=== PATIENT | female | born 1940 | race Caucasian/White ===

== ENCOUNTER → 2016-09-14 | Outpatient (CLI) | payer BC ==
--- NOTE | 2016-09-14 15:42 | MAMMOGRAPHY REPORT ---
BILATERAL DIGITAL SCREENING MAMMOGRAM WITH CAD: 09/14/2016 CLINICAL HISTORY: Routine screening. Patient has no complaints. TECHNIQUE: Current study was also evaluated with a Computer Aided Detection (CAD) system. Bilateral CC and MLO views were obtained. COMPARISON: Comparison is made to exams dated: 09/12/2015 mammogram, 09/10/2014 mammogram, 09/07/2013 ma mmogram, 09/05/2012 mammogram, 08/22/2011 mammogram, and 08/21/2010 mammogram - [facility]. BREAST COMPOSITION: There are scattered areas of fibroglandular density in both breasts. FINDINGS: No suspicious masses, calcifications, or areas of architectural distortion are noted in ei ther breast. There has been no significant interval change compared to prior exams. Scattered bilater al benign-appearing calcifications are not significantly changed. IMPRESSION: ACR BI-RADS CATEGORY 2: BENIGN There is no mammographic evidence of malignancy. A 1 year screening mammogram is recommended. The pa tient will receive written notification of the results. Approximately 10% of breast cancers are not detected with mammography. A negative mammographic report should not delay biopsy if a clinically suggestive mass is present. Simran Centeno M.D. /:09/14/2016 14:43:37 Zipper Trimmer Hand: Mireille GALVIN(Abhinav)(Debbie)(BD), [facility] letter sent: Normal 1/2 BI-RADS Code: ACR BI-RADS Category 2: Benign
== END | disposition home or self-care (01) ==
LOC: C.MAMM 13:40
PROVIDERS: ATTEND Obstetrics & Gynecology
DX: Z12.31 Encounter for screening mammogram for malignant neoplasm of breast (principal)

== ENCOUNTER → 2017-02-04 | Outpatient (CLI) | payer BC | END | disposition home or self-care (01) | LOC: C.RDSM 14:20 | PROVIDERS: ATTEND Physical Medicine & Rehabilitation Sports Medicine | DX: M17.0 Bilateral primary osteoarthritis of knee (principal) ==

== ENCOUNTER 2022-08-01 16:55 | Observation (INO) ==
--- NOTE | 2022-08-01 17:09 | ED Triage Note ---
Date of Service August 01, 2022 History of Present Illness This patient was briefly evaluated while in triage. An abbreviated physical exam was performed. This patient is a 81-year-old Female who presents to the ED for evaluation of dizziness/feeling off balance. Patient has a history of inner ear problems and does have some issues with vertigo. Symptoms started this morning. She feels somewhat shaky. Physical Exam VITALS: Vitals are noted on the nurse's note and reviewed by myself. GENERAL: This is a 81-year-old female, in no acute distress, well-developed well-nourished. SKIN: The skin was without rashes. HEAD: Normocephalic atraumatic. EYES: Pupils equal round and reactive to light and accommodation. MOUTH: Mucous membranes moist. HEART: Regular rate and rhythm, systolic murmur noted. LUNGS: Clear to auscultation bilaterally without wheezes, rales or rhonchi. NEURO: Patient was alert and oriented to person place and time. Initial orders for labs and / or imaging were placed and patient was placed in the waiting area until a bed is available. Please see further documentation for the full ED course. MDM / Impression Impression Impression: Ambulatory dysfunction, Unsteady gait
[2022-08-01 18:33] LABS: Alanine Aminotransferase 19 U/L (7-52); Albumin Globulin Ratio 1.3 (0.9-2); Albumin Level 3.9 gm/dl (3.4-5.0); Alkaline Phosphatase 95 U/L (34-104); Anion Gap 4 (3-11); Aspartate Aminotransferase 20 U/L (13-39); Bilirubin,Total 0.6 mg/dl (0.2-1.0); Blood Urea Nitrogen 12 mg/dl (6-23); Calcium 9.9 mg/dl (8.6-10.3); Carbon Dioxide 25 mmol/L (21-32); Chloride 110 mmol/L (98-107); Est GFR (African American) 100.5 ml/min; Est GFR (Non-African American) 86.7 ml/min; Glucose 97 mg/dl (70-99(Fasting)); Potassium 3.9 mmol/L (3.5-5.1); Sodium 139 mmol/L (136-145); Total Protein 6.9 gm/dl (6.0-8.3)
[2022-08-01 18:43] LABS: Basophils # (auto) 0.06 K/uL (0-0.2); Eosinophils # (auto) 0.28 K/uL (0-0.50); Eosinophils % (auto) 4.6 %; Hemoglobin 14.1 g/dl (12.0-16.0); Immature Granulocytes # (auto) 0.02 K/uL (0.01-0.20); Immature Granulocytes % (auto) 0.3 %; Lymphocytes # (auto) 1.95 K/uL (1.2-3.4); Lymphocytes % (auto) 31.8 %; Mean Corpuscular Hemoglobin 29.3 pg (25.0-34.0); Mean Corpuscular Hgb Conc 33.6 g/dL (32.0-36.0); Mean Corpuscular Volume 87.1 fL (80.0-100.0); Mean Platelet Volume 11.1 fL (9.4-12.4); Monocytes # (auto) 0.61 K/uL (0.11-0.59); Monocytes % (auto) 9.9 %; Neutrophils # (auto) 3.22 K/uL (1.40-6.50); Neutrophils % (auto) 52.4 %; Platelet Count 226 K/uL (130-400); RDW Coefficient of Variation 13.8 % (11.5-14.5); RDW Standard Deviation 44.5 fL (36.4-46.3); Red Blood Count 4.82 M/uL (4.20-5.40); White Blood Count 6.14 K/ul (4.8-10.8)
[2022-08-01] MEDS ORDERED: OPTIRAY 320 500ml IV ONE (19:31)
--- NOTE | 2022-08-01 20:02 | CT Scan Report ---
Exam(s): CT HEAD Without Contrast EXAM: CT Head Without Intravenous Contrast CLINICAL HISTORY: Reason for exam: dizziness/off balance. TECHNIQUE: Axial computed tomography images of the head/brain without intravenous contrast. Automated exposure control was utilized for the study. A dose lowering technique was utilized adhering to the principles of ALARA. COMPARISON: No relevant prior studies available. FINDINGS: No acute intracranial hemorrhage. No midline shift or mass effect. The territorial moya-white matter differentiation is maintained throughout. Age-related cerebral volume loss. Periventricular and subcortical white matter hypoattenuation, consistent with chronic microangiopathy. The visualized orbits appear grossly unremarkable. The calvarium is intact. The visualized paranasal sinuses and mastoid air cells are grossly clear. IMPRESSION: No acute intracranial hemorrhage, midline shift, or mass effect. Electronically signed by: Eugenio Blanco MD 08/01/22 20:01 PM
--- NOTE | 2022-08-01 20:07 | CT Scan Report ---
Exam(s): CTA HEAD With Contrast IV Amt: 112ml optiray 320 EXAM: CT Angiography Head With Intravenous Contrast CLINICAL HISTORY: Reason for exam: Dizziness, off balance. TECHNIQUE: Axial computed tomographic angiography images of the head with intravenous contrast. Automated exposure control was utilized for the study. A dose lowering technique was utilized adhering to the principles of ALARA. MIP reconstructed images were created and reviewed. CONTRAST: Patient received 112ml optiray 320 of IV contrast COMPARISON: No relevant prior studies available. FINDINGS: Right internal carotid artery: No acute findings. Intracranial segment is patent with no significant stenosis. No aneurysm. Right anterior cerebral artery: Unremarkable. No occlusion or significant stenosis. No aneurysm. Right middle cerebral artery: Unremarkable. No occlusion or significant stenosis. No aneurysm. Right posterior cerebral artery: Unremarkable. No occlusion or significant stenosis. No aneurysm. Left internal carotid artery: No acute findings. Intracranial segment is patent with no significant stenosis. No aneurysm. Left anterior cerebral artery: Unremarkable. No occlusion or significant stenosis. No aneurysm. Left middle cerebral artery: Unremarkable. No occlusion or significant stenosis. No aneurysm. Left posterior cerebral artery: Unremarkable. No occlusion or significant stenosis. No aneurysm. IMPRESSION: No large vessel occlusion. No intracranial aneurysm. Electronically signed by: Eugenio Blanco MD 08/01/22 20:06 PM
--- NOTE | 2022-08-01 20:08 | CT Scan Report ---
Exam(s): CTA NECK With Contrast IV Amt: 113ml optiray 320 EXAM: CT Angiography Neck With Intravenous Contrast CLINICAL HISTORY: Reason for exam: Dizziness, off balance. TECHNIQUE: Routine carotid CT angiography protocol was performed with intravenous contrast. NASCET criteria using the distal ICAs for comparison were used for evaluation of stenoses. Automated exposure control was utilized for the study. A dose lowering technique was utilized adhering to the principles of ALARA. MIP reconstructed images were created and reviewed. CONTRAST: Patient received 113ml optiray 320 of IV contrast COMPARISON: None. FINDINGS: VASCULATURE: Right common carotid artery: Unremarkable. No occlusion or significant stenosis. No dissection. Right internal carotid artery: Unremarkable. Extracranial segment is patent with no occlusion or significant stenosis. No dissection. Right external carotid artery: Unremarkable. No occlusion. Right vertebral artery: Unremarkable. No occlusion or significant stenosis. No dissection. Left common carotid artery: Unremarkable. No occlusion or significant stenosis. No dissection. Left internal carotid artery: Unremarkable. Extracranial segment is patent with no occlusion or significant stenosis. No dissection. Left external carotid artery: Unremarkable. No occlusion. Left vertebral artery: Unremarkable. No occlusion or significant stenosis. No dissection. IMPRESSION: No large vessel occlusion, dissection, or aneurysm. Electronically signed by: Eugenio Blanco MD 08/01/22 20:07 PM
--- NOTE | 2022-08-01 20:51 | Emergency Department Note ---
Impression & Plan Ambulatory dysfunction, Unsteady gait ED Provider Note INFORMANT: Patient ED PROVIDER(S): Narciso Curtis DO CHIEF COMPLAINT: PLAN: Disposition: Admission Outpatient prescription management: none Discussion with: I spoke with the hospitalist, who will see the patient for admission/observation and further evaluation and consultation. MEDICAL DECISION MAKING: This is a 81-year-old female who presents to the ED with a chief complaint of balance issues and feeling unsteady. The patient states that her symptoms started suddenly around 11:30 AM. 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 She states that she was able to walk and drive after her symptoms started but she continued to feel unbalanced and shaky. She states that she has been using a wheeled suitcase to help her maintain balance. She also states that if she is not using that she has to hang onto countertops and aldana and furniture in order to navigate without falling down. The patient denies any other complaints. Denies any trauma. She has an elevated blood pressure. The patient has no focal signs on my exam. Her neurologic exam is completely normal. She has normal cranial nerves II through XII. No pronator drift. Normal cerebellar testing with [id number]. Normal strength in the upper and lower extremities. A CT sunni ogram of the head and neck did not show any abnormalities. CT scan of the brain without contrast did not show any abnormality. An EKG shows a sinus rhythm. CBC did not show anemia or leukocytosis. Chemistry panel showed no electrolyte abnormality or kidney dysfunction. The patient was told the results. Because of her ongoing symptoms and negative work-up, I did speak with the hospitalist who will see the patient for further inpatient evaluation and care Triage Nursing notes reviewed. Vital Signs: reviewed Prior /Outside records reviewed: none Differential diagnosis: Differential includes acute coronary syndrome, myocardial infarction, CVA, TIA, anemia, infection, pneumonia, UTI, pyelonephritis, poor nutrition, dehydration, electrolyte disturbance,hypoglycemia. Diagnostics, as interpreted by me: 12 lead ECG: Sinus rhythm rate of 74. Right bundle branch block. PAC. No ST elevation. Normal QTc. Cardiac Monitoring ordered: Sinus rhythm in the 70s Medical decision rules: none Imaging studies: CT scan of the brain: No intracranial hemorrhage. Procedures: none. Critical care: none. HPI: See MDM above. PAST MEDICAL HISTORY: See Below PAST SURGICAL HISTORY: See Below SOCIAL HISTORY: See Below HOME MEDICATIONS: See Below ALLERGIES: See Below VITALS: See Below PHYSICAL EXAMINATION: See MDM for positive findings otherwise unremarkable. CONSTITUTIONAL/VITAL SIGNS: Reviewed GENERAL:done as appropriate INTEGUMENTARY: done as appropriate HEAD: done as appropriate EYES: done as appropriate RESPIRATORY: done as appropriate CARDIOVASCULAR:done as appropriate GI/ABDOMEN:done as appropriate EXTREMITIES: done as appropriate NEUROLOGICAL: done as appropriate PSYCHIATRIC:done as appropriate MUSCULOSKELETAL:done as appropriate TRIAGE NURSING DOCUMENTATION REVIEWED. Past Med/Surg History Social History Smoking Status: Never smoker Preferred Language: Portuguese Feels Safe at Home: Yes Allergies Allergies Allergy/AdvReac Type Severity Reaction Status Date / Time vancomycin Allergy Severe Swelling Unverified 08/01/22 20:25 of Lip/Tongue/Throat enoxaparin [From Lovenox] Allergy Intermediate Swelling Unverified 08/01/22 20:25 at injection site garlic Allergy Intermediate Gastrointestinal Unverified 08/01/22 20:25 Upset Home Meds Home Medications Medication Instructions Recorded Confirmed ascorbic acid (vitamin C) 500 mg 500 mg PO DAILY 08/01/22 08/01/22 tablet (Vitamin C) calcium carbonate 550 mg-magnesium 2 tab PO HS 08/01/22 08/01/22 hydroxide 110 mg chewable tablet cholecalciferol (vitamin D3) 50 50 mcg PO DAILY 08/01/22 08/01/22 mcg (2,000 unit) capsule (Vitamin D3) docusate sodium 100 mg capsule 100 mg PO BID 08/01/22 08/01/22 (Colace) latanoprost 0.005 % eye drops 1 drp ophthalmic (eye) 08/01/22 08/01/22 psyllium husk 0.52 gram capsule 0.52 g PO DAILY 08/01/22 08/01/22 vibegron 75 mg tablet (Gemtesa) 75 mg PO DAILY 08/01/22 08/01/22 Results & Data (ED) Vital Signs Vital Signs - 24 hr 08/01/22 17:05 08/01/22 19:50 08/01/22 19:54 Temperature 36.6 C Temperature Source Temporal Artery Scan Pulse Rate 98 H 85 Pulse Rate [Apical] 86 Pulse Rhythm Regular Pulse Rhythm [Apical] Regular Pulse Strength [Apical] Normal Respiratory Rate 16 18 18 Respiratory Effort / Characteristics Non-Labored Spontaneous Respiratory Depth Normal Normal Respiratory Pattern Regular Blood Pressure 151/84 H Blood Pressure [Right Arm] 178/102 H Blood Pressure Mean 106 Blood Pressure Mean [Right Arm] 127 Blood Pressure Position Sitting Pulse Oximetry 95 95 96 Oxygen Delivery Method Room Air Room Air Room Air Sepsis Recent Fever Within 48 Hours No Sepsis New/Unexplained Change in Mental Status No Sepsis Action Taken by Nursing No Action Required 08/01/22 20:00 Temperature Temperature Source Pulse Rate 86 Pulse Rate [Apical] Pulse Rhythm Pulse Rhythm [Apical] Pulse Strength [Apical] Respiratory Rate Respiratory Effort / Characteristics Respiratory Depth Respiratory Pattern Blood Pressure Blood Pressure [Right Arm] Blood Pressure Mean Blood Pressure Mean [Right Arm] Blood Pressure Position Pulse Oximetry Oxygen Delivery Method Sepsis Recent Fever Within 48 Hours Sepsis New/Unexplained Change in Mental Status Sepsis Action Taken by Nursing Laboratory Data 08/01/22 17:32 08/01/22 17:32 Lab Results 08/01/22 08/01/22 Range/Units 17:32 17:32 WBC 6.14 (4.8-10.8) K/ul RBC 4.82 (4.20-5.40) M/uL Hgb 14.1 (12.0-16.0) g/dl Hct 42.0 (37.0-47.0) % MCV 87.1 (80.0-100.0) fL MCH 29.3 (25.0-34.0) pg MCHC 33.6 (32.0-36.0) g/dL RDW Std Deviation 44.5 (36.4-46.3) fL RDW Coeff of Liam 13.8 (11.5-14.5) % Plt Count 226 (130-400) K/uL MPV 11.1 (9.4-12.4) fL Immature Gran % (Auto) 0.3 % Neut % (Auto) 52.4 % Lymph % (Auto) 31.8 % [place] % (Auto) 9.9 % Eos % (Auto) 4.6 % Baso % (Auto) 1.0 % Neut # (Auto) 3.22 (1.40-6.50) K/uL Lymph # (Auto) 1.95 (1.2-3.4) K/uL [place] # (Auto) 0.61 H (0.11-0.59) K/uL Eos # (Auto) 0.28 (0-0.50) K/uL Baso # (Auto) 0.06 (0-0.2) K/uL Immature Gran # (Auto) 0.02 (0.01-0.20) K/uL Sodium 139 (136-145) mmol/L Potassium 3.9 (3.5-5.1) mmol/L Chloride 110 H (98-107) mmol/L Carbon Dioxide 25 (21-32) mmol/L Anion Gap 4 (3-11) BUN 12 (6-23) mg/dl Creatinine 0.60 (0.6-1.2) mg/dl Est Cr Clr Drug Dosing Not Reportable Est GFR ( Amer) 100.5 ml/min Est GFR (Non-Af Amer) 86.7 ml/min BUN/Creatinine Ratio 20.0 (10-20) Glucose 97 (70-99(Fasting)) mg/dl Calcium 9.9 (8.6-10.3) mg/dl Total Bilirubin 0.6 (0.2-1.0) mg/dl AST 20 (13-39) U/L ALT 19 (7-52) U/L Alkaline Phosphatase 95 (34-104) U/L Total Protein 6.9 (6.0-8.3) gm/dl Albumin 3.9 (3.4-5.0) gm/dl Globulin 3.0 (2.5-4.0) gm/dl Albumin/Globulin Ratio 1.3 (0.9-2) Administered Medications Discontinued Medications Ioversol (Optiray 320 500ml) 112 ml IV ONCE ONE Stop: 08/01/22 19:32 Last Admin: 08/01/22 19:34 Dose: 112 ml Documented By: MARCIA Imaging Data Radiologist's Impression: Head CT 08/01/22 17:09 Exam(s): CT HEAD Without Contrast EXAM: CT Head Without Intravenous Contrast CLINICAL HISTORY: Reason for exam: dizziness/off balance. TECHNIQUE: Axial computed tomography images of the head/brain without intravenous contrast. Automated exposure control was utilized for the study. A dose lowering technique was utilized adhering to the principles of ALARA. COMPARISON: No relevant prior studies available. FINDINGS: No acute intracranial hemorrhage. No midline shift or mass effect. The territorial moya-white matter differentiation is maintained throughout. Age-related cerebral volume loss. Periventricular and subcortical white matter hypoattenuation, consistent with chronic microangiopathy. The visualized orbits appear grossly unremarkable. The calvarium is intact. The visualized paranasal sinuses and mastoid air cells are grossly clear. IMPRESSION: No acute intracranial hemorrhage, midline shift, or mass effect. Electronically signed by: Eugenio Blanco MD 08/01/22 20:01 PM Head CTA 08/01/22 17:10 Exam(s): CTA HEAD With Contrast IV Amt: 112ml optiray 320 EXAM: CT Angiography Head With Intravenous Contrast CLINICAL HISTORY: Reason for exam: Dizziness, off balance. TECHNIQUE: Axial computed tomographic angiography images of the head with intravenous contrast. Automated exposure control was utilized for the study. A dose lowering technique was utilized adhering to the principles of ALARA. MIP reconstructed images were created and reviewed. CONTRAST: Patient received 112ml optiray 320 of IV contrast COMPARISON: No relevant prior studies available. FINDINGS: Right internal carotid artery: No acute findings. Intracranial segment is patent with no significant stenosis. No aneurysm. Right anterior cerebral artery: Unremarkable. No occlusion or significant stenosis. No aneurysm. Right middle cerebral artery: Unremarkable. No occlusion or significant stenosis. No aneurysm. Right posterior cerebral artery: Unremarkable. No occlusion or significant stenosis. No aneurysm. Left internal carotid artery: No acute findings. Intracranial segment is patent with no significant stenosis. No aneurysm. Left anterior cerebral artery: Unremarkable. No occlusion or significant stenosis. No aneurysm. Left middle cerebral artery: Unremarkable. No occlusion or significant stenosis. No aneurysm. Left posterior cerebral artery: Unremarkable. No occlusion or significant stenosis. No aneurysm. IMPRESSION: No large vessel occlusion. No intracranial aneurysm. Electronically signed by: Eugenio Blanco MD 08/01/22 20:06 PM Neck CTA 08/01/22 17:10 Exam(s): CTA NECK With Contrast IV Amt: 113ml optiray 320 EXAM: CT Angiography Neck With Intravenous Contrast CLINICAL HISTORY: Reason for exam: Dizziness, off balance. TECHNIQUE: Routine carotid CT angiography protocol was performed with intravenous contrast. NASCET criteria using the distal ICAs for comparison were used for evaluation of stenoses. Automated exposure control was utilized for the study. A dose lowering technique was utilized adhering to the principles of ALARA. MIP reconstructed images were created and reviewed. CONTRAST: Patient received 113ml optiray 320 of IV contrast COMPARISON: None. FINDINGS: VASCULATURE: Right common carotid artery: Unremarkable. No occlusion or significant stenosis. No dissection. Right internal carotid artery: Unremarkable. Extracranial segment is patent with no occlusion or significant stenosis. No dissection. Right external carotid artery: Unremarkable. No occlusion. Right vertebral artery: Unremarkable. No occlusion or significant stenosis. No dissection. Left common carotid artery: Unremarkable. No occlusion or significant stenosis. No dissection. Left internal carotid artery: Unremarkable. Extracranial segment is patent with no occlusion or significant stenosis. No dissection. Left external carotid artery: Unremarkable. No occlusion. Left vertebral artery: Unremarkable. No occlusion or significant stenosis. No dissection. IMPRESSION: No large vessel occlusion, dissection, or aneurysm. Electronically signed by: Eugenio Blanco MD 08/01/22 20:07 PM Discharge Plan Visit Data Chief Complaint: Neuro Symptoms/Deficit Stated Complaint: ABNORMAL LAB ED Provider: Narciso Curtis Discharge Problem: Ambulatory dysfunction, Unsteady gait Patient Disposition: Being Evaluated by Hospitalist Forms Stand Alone Forms: [facility] Prescriptions Prescriptions: No Action latanoprost 0.005 % drops 1 drp ophthalmic (eye) HS Rolaids 550-110 mg Tablet,Chewable 2 tab PO HS ascorbic acid (vitamin C) [Vitamin C] 500 mg Tablet 500 mg PO DAILY docusate sodium [Colace] 100 mg Capsule 100 mg PO BID psyllium husk [Metamucil] 0.52 gram Capsule 0.52 g PO DAILY cholecalciferol (vitamin D3) [Vitamin D3] 50 mcg (2,000 unit) Capsule 50 mcg PO DAILY Gemtesa 75 mg tablet 75 mg PO DAILY Referrals Referrals: LIZZ NO [Other]
--- NOTE | 2022-08-01 22:03 | History & Physical Report ---
Date of Service August 01, 2022 Assessment & Plan (1) Unsteady gait: Plan: 81-year-old female presenting with acute onset of unsteady gait. No focal deficits on physical exam. CT head and CTA head and neck unremarkable. Patient with no known underlying risk factors for stroke. Labs are largely unremarkable Observation to medical floor Neurochecks Check MRI brain Check hemoglobin A1c and lipid panel PT/OT evaluation (2) Urinary incontinence: Plan: chronic. Patient on Gemtesa at home - can continue History of Present Illness Chief Complaint: Imbalance Primary Care Provider: LIZZ NO Meme Jason is a pleasant 81yo female with history of urinary incontinence presenting with acute onset of imbalance. Patient used to live in the [facility] but is currently living in [place]. She is presently in the [place] area visiting friends. Patient was at the [facility] this afternoon around 1130 when she abruptly developed imbalance and feeling of shakiness. She reports she was unable to walk and needed to lean against the wall to maintain balance. She drove back to her hotel room. Her symptoms persisted. Continued shakiness and imbalance. Patient reports she needed to hold on to furniture or the wall to maintain balance. Denies visual changes or speech deficit. No focal numbness, tingling or weakness. No headache, nausea. No chest pain, cough, shortness of breath. No additional complaints at this time. Patient with history of BPPV. She reports her symptoms today were not consistent with vertigo. No diaphoresis. She has history of urinary incontinence and started taking Vibegron several days ago. Allergies Allergy/AdvReac Type Severity Reaction Status Date / Time vancomycin Allergy Severe Swelling Unverified 08/01/22 20:25 of Lip/Tongue/Throat enoxaparin [From Lovenox] Allergy Intermediate Swelling Unverified 08/01/22 20:25 at injection site garlic Allergy Intermediate Gastrointestinal Unverified 08/01/22 20:25 Upset Home Medications Medication Instructions Recorded Confirmed Type ascorbic acid (vitamin C) 500 mg 500 mg PO DAILY 08/01/22 08/01/22 History tablet (Vitamin C) calcium carbonate 550 mg-magnesium 2 tab PO HS 08/01/22 08/01/22 History hydroxide 110 mg chewable tablet cholecalciferol (vitamin D3) 50 50 mcg PO DAILY 08/01/22 08/01/22 History mcg (2,000 unit) capsule (Vitamin D3) docusate sodium 100 mg capsule 100 mg PO BID 08/01/22 08/01/22 History (Colace) latanoprost 0.005 % eye drops 1 drp ophthalmic (eye) HS 08/01/22 08/01/22 History psyllium husk 0.52 gram capsule 0.52 g PO DAILY 08/01/22 08/01/22 History vibegron 75 mg tablet (Gemtesa) 75 mg PO DAILY 08/01/22 08/01/22 History Past Med/Surg History Medical History (Updated 08/02/22 @ 02:23 by Chhaya Kelley DO) BPPV (benign paroxysmal positional vertigo) Urinary incontinence Surgical History (Updated 08/02/22 @ 02:24 by Chhaya Kelley DO) History of ankle surgery History of breast surgery History of left hip replacement Social History Smoking Status: Former smoker Second Hand Exposure: No; Do You Dip or Chew Tobacco: No; Hx Alcohol Use: No Hx Substance Use: No Preferred Language: Belarusian Communication Ability: Effective Forensic Accountant Required: No Beliefs That Will Affect Care: None Current Living Situation: Alone Feels Safe at Home: Yes Safety Concerns: Feels Safe At This Time Review of Systems Review of Systems: All systems reviewed & are unremarkable except as noted in HPI & below Physical Exam Physical Exam: General: patient resting comfortably, NAD, non-toxic in appearance, AA&O x 4 Skin: warm, dry, intact, no rashes or lesions HEENT: NC/AT, PERRL, EOMI, anicteric sclera, conjunctiva without injection, external ear normal to inspection and nontender, nares patent, moist mucus membranes, dentition intact, no oropharyngeal lesions, neck supple, trachea midline, no LAD, no thyromegaly, no JVD Heart: +S1/S2, regular, no m/r/g Lungs: equal air entry bilaterally, no rales/rhonchi/wheezes Abd: +BS, soft, NT/ND, no masses/organomegaly/ascites Ext: warm, 2+ pulses in UE/LE bilaterally, no clubbing/cyanosis or edema Neuro: nonfocal, patient AA&O x 4, speech intact, no facial droop, moving all extremities on command with equal strength 5/5 Results & Data Results & Data Vital Signs (Past 12 Hours) Vital Signs Temp Pulse Pulse Resp BP BP Pulse Ox 08/01/22 20:00 86 08/01/22 19:54 86 18 178/102 H 96 08/01/22 19:50 85 18 95 08/01/22 17:05 36.6 C 98 H 16 151/84 H 95 O2 Del Method 08/01/22 20:00 08/01/22 19:54 Room Air 08/01/22 19:50 Room Air 08/01/22 17:05 Room Air Laboratory Results Laboratory Results WBC 6.14 K/ul (4.8-10.8) 08/01/22 17:32 RBC 4.82 M/uL (4.20-5.40) 08/01/22 17:32 Hgb 14.1 g/dl (12.0-16.0) 08/01/22 17:32 Hct 42.0 % (37.0-47.0) 08/01/22 17:32 MCV 87.1 fL (80.0-100.0) 08/01/22 17:32 MCH 29.3 pg (25.0-34.0) 08/01/22 17:32 MCHC 33.6 g/dL (32.0-36.0) 08/01/22 17:32 RDW Std Deviation 44.5 fL (36.4-46.3) 08/01/22 17:32 RDW Coeff of Liam 13.8 % (11.5-14.5) 08/01/22 17:32 Plt Count 226 K/uL (130-400) 08/01/22 17:32 MPV 11.1 fL (9.4-12.4) 08/01/22 17:32 Immature Gran % (Auto) 0.3 % 08/01/22 17:32 Neut % (Auto) 52.4 % 08/01/22 17:32 Lymph % (Auto) 31.8 % 08/01/22 17:32 [place] % (Auto) 9.9 % 08/01/22 17:32 Eos % (Auto) 4.6 % 08/01/22 17:32 Baso % (Auto) 1.0 % 08/01/22 17:32 Neut # (Auto) 3.22 K/uL (1.40-6.50) 08/01/22 17:32 Lymph # (Auto) 1.95 K/uL (1.2-3.4) 08/01/22 17:32 [place] # (Auto) 0.61 K/uL (0.11-0.59) H 08/01/22 17:32 Eos # (Auto) 0.28 K/uL (0-0.50) 08/01/22 17:32 Baso # (Auto) 0.06 K/uL (0-0.2) 08/01/22 17:32 Immature Gran # (Auto) 0.02 K/uL (0.01-0.20) 08/01/22 17:32 ESR 30 mm/hr (0-30) 08/01/22 17:32 Sodium 139 mmol/L (136-145) 08/01/22 17:32 Potassium 3.9 mmol/L (3.5-5.1) 08/01/22 17:32 Chloride 110 mmol/L (98-107) H 08/01/22 17:32 Carbon Dioxide 25 mmol/L (21-32) 08/01/22 17:32 Anion Gap 4 (3-11) 08/01/22 17:32 BUN 12 mg/dl (6-23) 08/01/22 17:32 Creatinine 0.60 mg/dl (0.6-1.2) 08/01/22 17:32 Est Cr Clr Drug Dosing Not Reportable 08/01/22 17:32 Est GFR ( Amer) 100.5 ml/min 08/01/22 17:32 Est GFR (Non-Af Amer) 86.7 ml/min 08/01/22 17:32 BUN/Creatinine Ratio 20.0 (10-20) 08/01/22 17:32 Glucose 97 mg/dl (70-99(Fasting)) 08/01/22 17:32 Calcium 9.9 mg/dl (8.6-10.3) 08/01/22 17:32 Phosphorus 3.1 mg/dl (2.5-4.9) 08/01/22 17:32 Magnesium 2.0 mg/dl (1.7-2.4) 08/01/22 17:32 Total Bilirubin 0.6 mg/dl (0.2-1.0) 08/01/22 17:32 AST 20 U/L (13-39) 08/01/22 17:32 ALT 19 U/L (7-52) 08/01/22 17:32 Alkaline Phosphatase 95 U/L (34-104) 08/01/22 17:32 C-Reactive Protein < 0.50 mg/dl (0-0.5) 08/01/22 17:32 Total Protein 6.9 gm/dl (6.0-8.3) 08/01/22 17:32 Albumin 3.9 gm/dl (3.4-5.0) 08/01/22 17:32 Globulin 3.0 gm/dl (2.5-4.0) 08/01/22 17: Albumin/Globulin Ratio 1.3 (0.9-2) 08/01/22 17:32 TSH 1.757 uIu/ml (0.300-4.500) 08/01/22 17:32 Urine Color Yellow 08/01/22 22:15 Urine Appearance Clear (Clear) 08/01/22 22:15 Urine pH 7.5 (4.5-7.5) 08/01/22 22:15 Ur Specific [place] 1.037 (1.000-1.030) H 08/01/22 22:15 Urine Protein Negative (Negative) 08/01/22 22:15 Urine Glucose (UA) Negative (Negative) 08/01/22 22:15 Urine Ketones Negative (Negative) 08/01/22 22:15 Urine Blood Negative (Negative) 08/01/22 22:15 Urine Nitrite Negative (Negative) 08/01/22 22:15 Urine Bilirubin Negative (Negative) 08/01/22 22:15 Urine Urobilinogen Negative (Negative) 08/01/22 22:15 Ur Leukocyte Esterase Trace (Negative) H 08/01/22 22:15 Urine WBC (Auto) 1-5 /hpf (0-5) 08/01/22 22:15 Urine RBC (Auto) 0-4 /hpf (0-4) 08/01/22 22:15 U Hyaline Cast (Auto) 0 /lpf (0-5) 08/01/22 22:15 U Epithel Cells (Auto) >30 /lpf (0-5) H 08/01/22 22:15 Urine Bacteria (Auto) Negative (Negative) 08/01/22 22:15 SARS-CoV-2, RNA, NAAT NEGATIVE (NEGATIVE) 08/01/22 20:[address] 08/01/22 17:09 Exam(s): CT HEAD Without Contrast EXAM: CT Head Without Intravenous Contrast CLINICAL HISTORY: Reason for exam: dizziness/off balance. TECHNIQUE: Axial computed tomography images of the head/brain without intravenous contrast. Automated exposure control was utilized for the study. A dose lowering technique was utilized adhering to the principles of ALARA. COMPARISON: No relevant prior studies available. FINDINGS: No acute intracranial hemorrhage. No midline shift or mass effect. The territorial moya-white matter differentiation is maintained throughout. Age-related cerebral volume loss. Periventricular and subcortical white matter hypoattenuation, consistent with chronic microangiopathy. The visualized orbits appear grossly unremarkable. The calvarium is intact. The visualized paranasal sinuses and mastoid air cells are grossly clear. IMPRESSION: No acute intracranial hemorrhage, midline shift, or mass effect. Electronically signed by: Eugenio Blanco MD 08/01/22 20:01 PM Head CTA 08/01/22 17:10 Exam(s): CTA HEAD With Contrast IV Amt: 112ml optiray 320 EXAM: CT Angiography Head With Intravenous Contrast CLINICAL HISTORY: Reason for exam: Dizziness, off balance. TECHNIQUE: Axial computed tomographic angiography images of the head with intravenous contrast. Automated exposure control was utilized for the study. A dose lowering technique was utilized adhering to the principles of ALARA. MIP reconstructed images were created and reviewed. CONTRAST: Patient received 112ml optiray 320 of IV contrast COMPARISON: No relevant prior studies available. FINDINGS: Right internal carotid artery: No acute findings. Intracranial segment is patent with no significant stenosis. No aneurysm. Right anterior cerebral artery: Unremarkable. No occlusion or significant stenosis. No aneurysm. Right middle cerebral artery: Unremarkable. No occlusion or significant stenosis. No aneurysm. Right posterior cerebral artery: Unremarkable. No occlusion or significant stenosis. No aneurysm. Left internal carotid artery: No acute findings. Intracranial segment is patent with no significant stenosis. No aneurysm. Left anterior cerebral artery: Unremarkable. No occlusion or significant stenosis. No aneurysm. Left middle cerebral artery: Unremarkable. No occlusion or significant stenosis. No aneurysm. Left posterior cerebral artery: Unremarkable. No occlusion or significant stenosis. No aneurysm. IMPRESSION: No large vessel occlusion. No intracranial aneurysm. Electronically signed by: Eugenio Blanco MD 08/01/22 20:06 PM Neck CTA 08/01/22 17:10 Exam(s): CTA NECK With Contrast IV Amt: 113ml optiray 320 EXAM: CT Angiography Neck With Intravenous Contrast CLINICAL HISTORY: Reason for exam: Dizziness, off balance. TECHNIQUE: Routine carotid CT angiography protocol was performed with intravenous contrast. NASCET criteria using the distal ICAs for comparison were used for evaluation of stenoses. Automated exposure control was utilized for the study. A dose lowering technique was utilized adhering to the principles of ALARA. MIP reconstructed images were created and reviewed. CONTRAST: Patient received 113ml optiray 320 of IV contrast COMPARISON: None. FINDINGS: VASCULATURE: Right common carotid artery: Unremarkable. No occlusion or significant stenosis. No dissection. Right internal carotid artery: Unremarkable. Extracranial segment is patent with no occlusion or significant stenosis. No dissection. Right external carotid artery: Unremarkable. No occlusion. Right vertebral artery: Unremarkable. No occlusion or significant stenosis. No dissection. Left common carotid artery: Unremarkable. No occlusion or significant stenosis. No dissection. Left internal carotid artery: Unremarkable. Extracranial segment is patent with no occlusion or significant stenosis. No dissection. Left external carotid artery: Unremarkable. No occlusion. Left vertebral artery: Unremarkable. No occlusion or significant stenosis. No dissection. IMPRESSION: No large vessel occlusion, dissection, or aneurysm. Electronically signed by: Eugenio Blanco MD 08/01/22 20:07 PM ECG Additional Comments: EKG per my evaluation reveals sinus rhythm at 74 bpm with frequent premature atrial contractions, CO = 156, QRS = 114, QTc = 452. No acute ischemic changes PG Care Time/CCT Total # of Minutes Spent Total Time Spent with Patient: Total time spent is greater than 50% in coordination of care (as documented) at patient's floor/unit and/or counseling patient: Coding Level of Care Code 12498 INT INP/OBS CARE 2/55MIN Diagnoses Unsteady gait R26.81 Urinary incontinence R32
[2022-08-01 22:39] LABS: Appearance Urine Clear (Clear); Bacteria Urine Automated Negative (Negative); Bilirubin Urine Negative (Negative); Blood Urine Negative (Negative); Cast Urine Automated 0 /lpf (0-5); Color Urine Yellow; Epithelial Cell Urine Auto >30 /lpf (0-5); Glucose Urine UA Negative (Negative); Ketones Urine Negative (Negative); Leukocyte Esterase Urine Trace (Negative); Nitrite Urine Negative (Negative); Protein Urine Negative (Negative); RBC Urine Automated 0-4 /hpf (0-4); Specific Gravity Urine 1.037 (1.000-1.030); Urobilinogen Urine Negative (Negative); pH Urine 7.5 (4.5-7.5)
[2022-08-02] MEDS ORDERED: ACETAMINOPHEN 325 MG TAB PO PRN (00:18)
[2022-08-02] MEDS ORDERED: PHARMACIST DISCHARGE MED REC CONSULT PRN (00:18)
[2022-08-02] MEDS ORDERED: DOCUSATE SODIUM 100 MG CAP PO PRN (00:18)
[2022-08-02 00:42] LABS: C Reactive Protein < 0.50 mg/dl (0-0.5); Phosphorus 3.1 mg/dl (2.5-4.9)
[2022-08-02] MEDS ORDERED: GADOBUTROL 65ML VIAL IV ONE (01:19)
--- NOTE | 2022-08-02 03:36 | Magnetic Resonance Report ---
Exam(s): MRI HEAD W/WO Contrast IV Amt: 9cc gadavist EXAM: MR Head Without and With Intravenous Contrast CLINICAL HISTORY: Reason for exam: imbalance. TECHNIQUE: Magnetic resonance images of the head/brain without and with intravenous contrast in multiple planes. CONTRAST: Patient received 9cc gadavist of IV contrast COMPARISON: Comparison made to prior noncontrast head CT from August 01, 2022. FINDINGS: Brain: Moderate nonspecific white matter changes. No mass. No hemorrhage. No acute infarct. No evidence of abnormal enhancement. The flow voids at the base of the brain are intact. Ventricles: Moderate ventriculomegaly. Bones/joints: Hyperostosis frontalis interna. Sinuses: Unremarkable as visualized. No acute sinusitis. Mastoid air cells: There is a small amount of fluid in the left mastoid air cells. No mastoid effusion. Orbits: Left lens replacement. IMPRESSION: No evidence of acute intracranial pathology. Moderate nonspecific white matter changes. Electronically signed by: Bharti Daniel MD 08/02/22 03:35 AM
[2022-08-02 08:16] LABS: Basophils # (auto) 0.07 K/uL (0-0.2); Basophils % (auto) 1.3 %; Eosinophils # (auto) 0.34 K/uL (0-0.50); Eosinophils % (auto) 6.1 %; Hematocrit (blood only) 38.8 % (37.0-47.0); Hemoglobin 12.8 g/dl (12.0-16.0); Immature Granulocytes # (auto) 0.02 K/uL (0.01-0.20); Immature Granulocytes % (auto) 0.4 %; Lymphocytes # (auto) 1.64 K/uL (1.2-3.4); Lymphocytes % (auto) 29.4 %; Mean Corpuscular Hemoglobin 29.1 pg (25.0-34.0); Mean Corpuscular Volume 88.2 fL (80.0-100.0); Mean Platelet Volume 10.9 fL (9.4-12.4); Monocytes # (auto) 0.69 K/uL (0.11-0.59); Monocytes % (auto) 12.4 %; Neutrophils # (auto) 2.82 K/uL (1.40-6.50); Neutrophils % (auto) 50.4 %; Platelet Count 197 K/uL (130-400); White Blood Count 5.58 K/ul (4.8-10.8)
[2022-08-02 08:45] LABS: BUN Creatinine Ratio 17.7 (10-20); Calcium 9.3 mg/dl (8.6-10.3); Chol HDL Ratio 2.5 (0-5); Creatinine Clr Calc Pharmacy 82.3 ml/min; Est GFR (African American) 99.4 ml/min; Est GFR (Non-African American) 85.8 ml/min; Potassium 3.9 mmol/L (3.5-5.1)
[2022-08-02 09:28] LABS: Estimated Average Glucose 120 mg/dl; Hemoglobin A1C 5.8 % (4.5-5.6)
[2022-08-02] MEDS: PSYLLIUM or GUAR GUM FIBER POWDER PACKET PO SCH (10:19)
--- NOTE | 2022-08-02 10:30 | Electrocardiogram Report ---
Test Reason : Blood Pressure : / mmHG Vent. Rate : 074 BPM Atrial Rate : 074 BPM P-R Int : 156 ms QRS Dur : 114 ms QT Int : 408 ms P-R-T Axes : 072 076 026 degrees QTc Int : 452 ms Poor data quality, interpretation may be adversely affected Sinus rhythm with Premature supraventricular complexes Right bundle branch block Abnormal ECG When compared with ECG of 18-JUN-2002 17:36, Premature supraventricular complexes are now Present Confirmed by Davin Ahumada ([id number]) on 08/02/2022 10:29:59 AM Referred By: REFERRED SELF Confirmed By:Davin Ahumada
[2022-08-02] MEDS: MECLIZINE 12.5 MG TAB PO SCH ×2 (13:26→20:12)
--- NOTE | 2022-08-02 15:34 | Hospitalist Progress Note ---
Date of Service August 02, 2022 Assessment & Plan (1) Unsteady gait: Plan: Imbalance may be due to benign positional vertigo without overt vertigo. Brain MRI scan negative for CVA. She states she has had a diagnosis of BPV in the past. She agrees to a trial of meclizine therapy. Hopefully she can go home tomorrow, August 03 (2) Urinary incontinence: Plan: chronic. Patient on Gemtesa at home Plan Hopeful discharge to home tomorrow, August 03 Admission and Anticipated Discharge Date Admission Date: August 01, 2022 Subjective Alert and oriented. No distress. Her symptoms may be benign positional vertigo related without overt vertigo. Brain MRI scan negative for CVA. She agrees to a trial of meclizine 3 times a day on a scheduled basis. Hopefully she can go home tomorrow, August 03 Review of Systems Review of Systems: Constitutional-no fever or chills ENT-no blurred vision, no double vision, no epistaxis, no sore throat Respiratory-no cough, no wheezing, no shortness of breath Cardiac-no palpitations, no chest pain, no syncope GI-no nausea, vomiting, diarrhea, melena, hematochezia -no urinary retention, no urinary incontinence, no dysuria, no hematuria Musculoskeletal-no joint pain, no muscle tenderness Skin-no bruising, no rashes, no pruritus Neuro-no isolated weakness, no paresthesia. Imbalance noted while attempting to walk Psych-no depression, no anxiety Physical Exam Physical Exam: General-alert and oriented x3, no fevers, no chills HEENT-head atraumatic and normocephalic, pupils equal and reactive to light, ex traocular muscles intact Neck-no lymphadenopathy or thyromegaly, trachea midline Chest-clear to auscultation percussion. No rales wheezing or rhonchi Cardiac-regular rate and rhythm, normal S1 and S2 Abdomen-normal bowel sounds, nontender, no hepatosplenomegaly Extremities-no cyanosis, clubbing, or edema Neuro-cranial nerves II through XII intact, motor and sensory function within normal limits, strength symmetrical , no focal deficits Psych-normal affect, normal mood Results & Data Results & Data Vital Signs (Past 12 Hours) Vital Signs Temp Pulse Resp BP Pulse Ox O2 Del Method 08/02/22 11:57 36.6 C 96 H 17 138/86 96 Room Air 08/02/22 08:26 36.4 C L 62 17 138/82 96 Room Air Laboratory Results 08/02/22 07:34 08/02/22 07:34 PG Care Time/CCT Total # of Minutes Spent Total Time Spent with Patient: Total time spent is greater than 50% in coordination of care (as documented) at patient's floor/unit and/or counseling patient: Coding Level of Care Code 20388 SUB INP/OBS CARE 3/50MIN Diagnoses Unsteady gait R26.81 Urinary incontinence R32
[2022-08-02] MEDS ORDERED: LATANOPROST 0.005% OP SOLN 2.5 ML BTL OP SCH (21:00)
[2022-08-03 06:52] LABS: Basophils # (auto) 0.05 K/uL (0-0.2); Basophils % (auto) 0.8 %; Eosinophils # (auto) 0.31 K/uL (0-0.50); Eosinophils % (auto) 5.2 %; Hematocrit (blood only) 38.1 % (37.0-47.0); Hemoglobin 12.8 g/dl (12.0-16.0); Immature Granulocytes # (auto) 0.03 K/uL (0.01-0.20); Immature Granulocytes % (auto) 0.5 %; Lymphocytes % (auto) 31.8 %; Mean Corpuscular Hemoglobin 29.4 pg (25.0-34.0); Mean Corpuscular Hgb Conc 33.6 g/dL (32.0-36.0); Mean Corpuscular Volume 87.6 fL (80.0-100.0); Mean Platelet Volume 11.1 fL (9.4-12.4); Monocytes % (auto) 11.7 %; Neutrophils # (auto) 2.98 K/uL (1.40-6.50); Platelet Count 187 K/uL (130-400); RDW Coefficient of Variation 13.9 % (11.5-14.5); RDW Standard Deviation 44.7 fL (36.4-46.3); Red Blood Count 4.35 M/uL (4.20-5.40); White Blood Count 5.97 K/ul (4.8-10.8)
[2022-08-03 07:13] LABS: BUN Creatinine Ratio 21.9 (10-20); Calcium 9.2 mg/dl (8.6-10.3); Creatinine Clr Calc Pharmacy 69.9 ml/min; Est GFR (African American) 90.8 ml/min; Est GFR (Non-African American) 78.3 ml/min; Potassium 4.1 mmol/L (3.5-5.1)
--- NOTE | 2022-08-03 08:46 | Discharge Summary ---
Date of Service August 03, 2022 Admission HPI Per Admitting Provider Meme Jason is a pleasant 81yo female with history of urinary incontinence presenting with acute onset of imbalance. Patient used to live in the [place] area but is currently living in [place]. She is presently in the [place] area visiting friends. Patient was at the [facility] this afternoon around 1130 when she abruptly developed imbalance and feeling of shakiness. She reports she was unable to walk and needed to lean against the wall to maintain balance. She drove back to her hotel room. Her symptoms persisted. Continued shakiness and imbalance. Patient reports she needed to hold on to furniture or the wall to maintain balance. Denies visual changes or speech deficit. No focal numbness, tingling or weakness. No headache, nausea. No chest pain, cough, shortness of breath. No additional complaints at this time. Patient with history of BPPV. She reports her symptoms today were not consistent with vertigo. No diaphoresis. She has history of urinary incontinence and started taking Vibegron several days ago. Principal Diagnosis Benign positional vertigo with unsteady gait and imbalance Discharge Exam General-alert and oriented x3, no fevers, no chills HEENT-head atraumatic and normocephalic, pupils equal and reactive to light, extraocular muscles intact Neck-no lymphadenopathy or thyromegaly, trachea midline Chest-clear to auscultation percussion. No rales wheezing or rhonchi Cardiac-regular rate and rhythm, normal S1 and S2 Abdomen-normal bowel sounds, nontender, no hepatosplenomegaly Extremities-no cyanosis, clubbing, or edema Neuro-cranial nerves II through XII intact, motor and sensory function within normal limits, strength symmetrical , no focal deficits Psych-normal affect, normal mood Discharge Data Allergies Allergy/AdvReac Type Severity Reaction Status Date / Time vancomycin Allergy Severe Swelling Unverified 08/01/22 20:25 of Lip/Tongue/Throat enoxaparin [From Lovenox] Allergy Intermediate Swelling Unverified 08/01/22 20:25 at injection site garlic Allergy Intermediate Gastrointestinal Unverified 08/01/22 20:25 Upset Consultations 08/01/22 21:13 ED Decision to Admit Stat Ordered Studies 08/01/22 17:09 CT head/brain wo con Stat 08/01/22 17:10 CT angio head w con Stat CT angio neck with con Stat 08/02/22 00:18 MR brain wo/w con Routine Hospital Course (1) Unsteady gait: She is now asymptomatic. Meclizine also helped her sleep. We will continue meclizine until she has no symptoms for 2 straight days then she can stop it and restart meclizine as needed. Brain MRI scan negative for CVA. She states she has had a diagnosis of BPV in the past. (2) Urinary incontinence: chronic. Patient on Gemtesa at home Plan Discharge to home today, August 03 Total Time Total Time Spent Total Time Spent (In Minutes): 40 minutes Discharge Plan Discharge Items Patient Disposition: Home - Self-Care Reason For Visit: IMBALANCE Discharge Diagnosis: Benign positional vertigo Activity: Resume your previous activity Non-emergency contact: Primary Care Provider Call non-emergency contact if: you have any medication questions and your symptoms worsen Follow-up/Referrals: Loreto Chao MD [Primary Care Provider] - Diet: Regular and Heart Healthy Addtl Attending Provider Instructions: Take meclizine for 2 days beyond when you have no balance issues then stop it. Restart meclizine if symptoms recur Pending Studies at Discharge: No Stand-Alone Forms: My [employer], Smoking Cessation Medications and DC Order Prescriptions: New meclizine 12.5 mg Tablet 12.5 mg PO TID Qty: 30 0RF Continued latanoprost 0.005 % drops 1 drp ophthalmic (eye) HS Rolaids 550-110 mg Tablet,Chewable 2 tab PO HS ascorbic acid (vitamin C) [Vitamin C] 500 mg Tablet 500 mg PO DAILY docusate sodium [Colace] 100 mg Capsule 100 mg PO BID psyllium husk [Metamucil] 0.52 gram Capsule 0.52 g PO DAILY cholecalciferol (vitamin D3) [Vitamin D3] 50 mcg (2,000 unit) Capsule 50 mcg PO DAILY Gemtesa 75 mg tablet 75 mg PO DAILY Discharge Orders: Discharge Order (Routine); Ordered 08/03/22 Ordered By: Yovany Fischer Admission Data Admit Date/Time: 08/01/22 22:03 Attending Provider: Yovany Fischer Admit Provider: Chhaya Kelley Primary Care Provider: Loreto Chao Other Providers: Chhaya Kelley Coding Level of Care Code 68851 INP/OBS DISCH >30 MIN Diagnoses Unsteady gait R26.81 Urinary incontinence R32
[2022-08-03] MEDS: MECLIZINE 12.5 MG TAB PO SCH (08:59)
[2022-08-03] MEDS: PSYLLIUM or GUAR GUM FIBER POWDER PACKET PO SCH (09:09)
== END 2022-08-03 10:22 | disposition home or self-care (01) ==
LOC: ED 16:55 → 2N 16:55 → SUATTDRO 22:03 → 2N 23:57